=== PATIENT | female | born 1975 | race Caucasian/White ===

== ENCOUNTER 2024-02-19 20:30 | Emergency (ER) | payer MEDICAID, SELFPAY ==
[2024-02-19 20:32] VITALS: BP 131/72; PULSE 76; RESP 16; TEMP 36.3; O2SAT 100; BMI 31.6
--- NOTE | 2024-02-19 20:35 | RAD_ITS ---
INDICATION: PAIN EXAMINATION/TECHNIQUE: X-RAY - LEFT XR Foot Min 3 Views 3 VIEWS COMPARISON: FINDINGS: SOFT TISSUES: No soft tissue swelling or gas. BONES/JOINTS: No acute fracture or subluxation.. There appears to be fusion at the talotibial articulation.. Orthopedic hardware at the calcaneus No sclerotic or destructive changes observed. RAD/Foot min 3 Views IMPRESSION: Negative no acute bony injury. Electronically Signed: Abdias López DO at 22:43 EDT ,
--- NOTE | 2024-02-19 22:36 | EDS_ITS ---
HPI History of Present Illness Chief Complaint: Lower Extremity Injury Informant: patient Narrative Narrative: Patient is a 48-year-old female with history of prior ankle fusion and calcaneus surgery of the left foot presenting with worsening pain and swelling of the left lateral foot. She states yesterday she was walking and driving had a lot of big rocks on and was on even. She denies any actual injury. She has had increased pain today despite taking Tylenol. Came in for further evaluation. Previous ankle/foot surgery with , Dr. Bell. No other complaints or injuries reported at this time. [facility] Medical History FHx: mastectomy Home Medications ?Medication ?Instructions ?Recorded ?Last Taken ?Type hydrocodone 5 mg-acetaminophen 300 1 tab PO Q8H PRN pain 3 days #10 02/20/24 Unknown Rx mg tablet tabs Allergy/AdvReac Type Severity Reaction Status Date / Time bee venom protein (honey Allergy Severe Anaphylaxis Verified 02/19/24 20:34 bee) (bee sting) adhesive tape (tape) Allergy Mild BLISTER Verified 02/19/24 20:34 Surgical History H/O spinal fusion H/O thumb surgery H/O gastric sleeve H/O: hysterectomy H/O ankle fusion Social History Smoking Status: Former smoker ROS ROS ED Constitutional Constitutional ED: Denies chills or fever(s) Musculoskeletal Musculoskeletal: Reports other Details: left foot pain Integumentary Denies Abrasions or rash Neurologic Neurologic: Denies paresthesias or weakness Hematologic/Lymphatic Hematologic/Lymphatic: Denies easy bleeding or easy bruising EXAM Physical Exam Const Vital Signs: 02/19/24 20:32 Temperature 97.3 F L Temperature Source Temporal Pulse Rate 76 Respiratory Rate 16 Blood Pressure 131/72 H Blood Pressure Mean 91 Pulse Ox 100 Oxygen Delivery Method Room Air Positive well nourished and well developed General Appearance ED: well developed and NAD Chest Wall inspection of chest normal Resp normal respiratory effort Cardio regular rate and regular rhythm Cardio Narrative: 2+ DP pulse Extremity full ROM Extremity Narrative: No obvious deformity. At the proximal aspect of the left fifth metatarsal there is a localized area of redness, mild swelling and tenderness to palpation. No other bony tenderness of the foot or ankle appreciated. Normal Luna test. No effusion of the ankle joint appreciated on exam. No warmth of the foot or ankle. No associated lymphangitic streaking. No pedal edema appreciated. Neuro oriented x3, moves all extremities and no sensory deficits noted Sensorium / Orientation: alert Psych mental status grossly normal Skin no wounds Lesions: no lesions Rashes: no rashes MDM MDM MDM Narrative Medical decision making narrative: Patient presents with left lateral foot pain. She denies any trauma but states she was walking on unequal large rocks yesterday. Has a history of prior foot/ankle surgeries. Patient has good distal pulses. No obvious deformity. Does have a small area of localized swelling, redness and tenderness to the left lateral midfoot around the area of the fifth metatarsal head. There is no associated warmth and lower suspicion for associated abscess, foreign body (no break in the skin) or gout as there is no overlying warmth. Patient denies any history of gout. Critical x-ray obtained reviewed by myself as well as radiology does not show any acute bony abnormalities. Patient will be given a prescription for Vicodin as she is not having relief with [id number] medication, Terry wrap, postop shoe and outpatient podiatry referral. She verbalized agreement or stands plan. Discharged home in stable condition. Radiography Diagnostic Testing: Clinical Impression(s) from Imaging Studies Foot X-Ray 02/19/24 20:35 IMPRESSION: Negative no acute bony injury. Electronically Signed: Abdias López DO at 22:43 EDT Reading Location ID and State: [facility] / [place] Tel [phone], Service support , Discharge Plan Triage Chief Complaint: Lower Extremity Injury ED Provider: Savanna Cervantes Dx/Rx/DC Orders Clinical Impression: Acute pain of left foot Instructions: ED Foot Sprain Prescriptions: New hydrocodone-acetaminophen 5-300 mg tablet 1 tab PO Q8H PRN (Reason: pain) 3 Days Qty: 10 0RF Primary Care Provider: Lelo Melton Referrals: Darrick Delarosa DPM [Med Staff - Active Staff] - 3-5 Days if not improving Town Doctor,Out of [Non-Staff] - Activity Restrictions/Additional Instructions: Your x-ray did not show any acute fracture. Please return if you have worsening your symptoms. Take the Vicodin for breakthrough pain. Otherwise alternate ibuprofen and Tylenol. Wear Terry wrap postop shoe as needed for comfort. Please follow-up with local podiatry. You been given referral. Print Language: Kazakh Disposition Disposition: Home, Self Care
== END 2024-02-20 00:13 | disposition home or self-care (01) ==
PROVIDERS: Emergency Provider Emergency Medicine; Visit Provider Emergency Medicine
DX: M79.672 Pain in left foot (principal); Z87.891 Personal history of nicotine dependence; Z98.890 Other specified postprocedural states; M79.89 Other specified soft tissue disorders
CPT/HCPCS: 73630; 99283